=== PATIENT | female | born 1950 | race Hispanic/Latino ===

== ENCOUNTER 2017-08-21 05:51 | Observation (INO) | payer BC, MEDICARE ==
[2017-08-21] MEDS ORDERED: Esmolol 2,500 MG/250 ML 250 ML ONE (06:13)
[2017-08-21] MEDS ORDERED: Diltiazem 125 MG in Sodium Chloride 0.9% 100 ML IVPB SCH (06:30)
[2017-08-21] MEDS ORDERED: Ondansetron HCl/PF 4 MG/2 ML Vial ONE (06:32)
[2017-08-21 07:36] LABS: #Basophils 0.1 thou/uL (0.0-0.2); #Eosinphils 0.1 thou/uL (0.0-0.7); #Lymphocytes 1.1 thou/uL (1.20-3.40); #Monocytes 0.4 thou/uL (0.11-0.59); #Neutrophils 5.8 thou/uL (1.40-6.50); %Basophils 0.8 % (0.0-1.0); %Eosinophils 1.4 % (0.0-10.0); %Lymphocytes 14.4 % (21.0-51.0); %Monocytes 5.8 % (0.0-10.0); %Neutrophils 77.5 % (42.0-75.0); Hemoglobin 14.3 g/dL (12.0-16.0); Mean Corpuscular HGB CONC 32.9 g/dL (32.0-36.0); Mean Corpuscular Hemoglobin 29.5 pg (27.0-31.0); Mean Corpuscular Volume 89.9 fL (78.0-98.0); Platelet Count 237 thou/uL (130-400); RBC Distribution Width 11.4 % (11.5-14.5); Red Blood Cell (RBC) Count 4.84 mill/uL (4.20-5.40); White Blood Cell (WBC) Count 7.5 thou/uL (4.8-10.8)
[2017-08-21 07:48] LABS: ALT (SGPT) 14 U/L (8-55); AST (SGOT) 19 U/L (5-34); Alkaline Phosphatase 72 U/L (40-150); Anion Gap 14 mmol/L (10-20); BUN (Urea Nitrogen) 15 mg/dL (9.8-20.1); Bilirubin, Total 0.3 mg/dL (0.2-1.2); CK (CPK) 135 U/L (29-168); Calc. Creatinine Clearance 0 mL/min (70-130); Calcium 8.7 mg/dL (7.8-10.44); Carbon Dioxide 21 mmol/L (23-31); Chloride 108 mmol/L (98-107); Estimated GFR-MDRD 71; Globulin 2.8 g/dL (2.4-3.5); Glucose 115 mg/dL (80-115); Magnesium 2.4 mg/dL (1.6-2.6); Potassium 3.8 mmol/L (3.5-5.1); Protein, Total 6.8 g/dL (6.0-8.3); Sodium 139 mmol/L (136-145)
[2017-08-21] MEDS ORDERED: Meclizine HCl 25 MG TAB ONE (07:48)
[2017-08-21 07:52] LABS: CKMB 0.7 ng/mL (0-6.6); Troponin I Less than 0.010 ng/mL (< 0.028)
[2017-08-21] MEDS ORDERED: Promethazine HCl 25 MG/ML VIAL ONE (08:23)
--- NOTE | 2017-08-21 08:24 | RAD ---
UPRIGHT PORTABLE CHEST 1 VIEW: Date: 08/21/17 HISTORY: 66-year-old female with chest pain, dizziness, and nausea. FINDINGS: Heart size is normal. The lungs are clear. Monitor leads overlie the chest. IMPRESSION: Atherosclerosis of the aorta. No acute intrathoracic disease. POS: [facility]
[2017-08-21 09:35] LABS: Bilirubin Negative (Negative); Blood, Urine Negative (Negative); Clarity CLEAR (Clear); Glucose, Urine (Dipstick) Negative (Negative); Leukocyte Negative (Negative); Nitrite Negative (Negative); Protein, Urine (Dipstick) Negative (Neg-Trace); Urobilinogen 0.2 mg/dL (0.2-1.0)
--- NOTE | 2017-08-21 10:21 | CT ---
CT BRAIN WITHOUT CONTRAST: INDICATIONS: A 66-year-old female with a history of atrial fibrillation with nausea, vomiting, and vertigo like sy mptoms. The patient is also having shortness of breath. COMPARISON: None. FINDINGS: No acute infarct, hemorrhage, or hydrocephalus is present. The septum pellucidum and third ventricle are midline. There is some mild mucosal thickening within a few ethmoid air cells. The mastoid air cells are clear. The skull is intact. The extracranial soft tissues are normal appearing. IMPRESSION: 1. No acute intracranial abnormality. 2. Mild paranasal sinus disease. POS: [facility]
[2017-08-21 10:22] VITALS: BMI 31.2
[2017-08-21] MEDS ORDERED: Ondansetron HCl/PF 4 MG/2 ML Vial IVP PRN (10:39)
[2017-08-21] MEDS ORDERED: Ondansetron ODT 4 MG TAB PO PRN (10:39)
[2017-08-21] MEDS ORDERED: Acetaminophen 325 MG TAB PO PRN ×2 (10:40→13:09)
[2017-08-21] MEDS ORDERED: Aspirin 325 MG TAB PO SCH (10:45)
[2017-08-21 11:10] LABS: Troponin I Less than 0.010 ng/mL (< 0.028)
[2017-08-21] MEDS ORDERED: Guaifenesin DM 100-10/5 ML UDCUP PO PRN (13:09)
[2017-08-21] MEDS ORDERED: Senokot 8.6 MG TAB PO PRN (13:09)
[2017-08-21] MEDS ORDERED: Meclizine HCl 25 MG TAB PO PRN (13:10)
[2017-08-21] MEDS ORDERED: Succinylcholine Chloride 20 MG/ML 10 ml SYRINGE FS ONE (13:20)
[2017-08-21] MEDS ORDERED: Meclizine HCl 25 MG TAB PO SCH (14:00)
[2017-08-21 14:17] LABS: Troponin I Less than 0.010 ng/mL (< 0.028)
[2017-08-21] MEDS: Sodium Chloride 0.9% 1,000 ML IV SCH (14:46)
--- NOTE | 2017-08-21 14:58 | MRI ---
BRAIN MRI NONCONTRAST: Date: 08/21/[address] from earlier same date. CLINICAL HISTORY: TIA. FINDINGS: There is no evidence of ventriculomegaly. Mass effect, midline shift, or acute territorial infarction . No hemorrhagic intracranial susceptibility or significant signal abnormality of the brain parenchym a. A few nonspecific foci of increased FLAIR and T2 signal of the cerebral white matter may relate to minimal areas of gliosis. The skull base flow-voids are patent. [place] intraocular lenses are absent . IMPRESSION: No acute territorial infarction or mass effect. POS: [facility]
--- NOTE | 2017-08-21 19:29 | HP ---
REASON FOR ADMISSION: Atrial fibrillation, severe dizziness. HISTORY OF PRESENT ILLNESS: The patient gives history of waking up with dizziness. She tried to go use her restroom and turned around, which made her dizziness worse. From then on, she has been lying down. Each time she tries to get up, she has been feeling very dizzy. She also developed nauseating feeling and vomited multiple times. On arrival in the ER, the patient was found to be in atrial fibrillation with RVR. She was placed on esmolol drip and titrated up to 100 mcg with which she converted to sinus rhythm. She also received Zofran x2 which did not really help. She was given meclizine and Phenergan and her vomiting has resolved at present. The patient says she has had nearly 4 episodes of atrial fibrillation in the last 17 years with prior ablations as well. She follows up with Dr. Andrews for Cardiology. Has no complaints of any weakness in any of the extremities. The patient is right handed. Has no trouble swallowing. No history of trauma. PAST MEDICAL/SURGICAL HISTORY: Thyroid cancer with half of her thyroid removed , paroxysmal atrial fibrillation nearly 4 episodes in the last 17 years with prior ablation per patient, appendectomy, hysterectomy, and cholecystectomy. History of Helicobacter pylori infection and the patient is scared to take aspirin because of possible peptic ulcer disease. She also mentions that she has gained nearly 20 pounds in the last 1 year. CURRENT MEDICATION: Synthroid 100 mcg p.o. daily. ALLERGIES: No known drug allergies. PERSONAL HISTORY: Does not abuse alcohol or drugs. No history of smoking. FAMILY HISTORY: Mother of ovarian cancer at the age of 80 years. Father of kidney cancer at the age of 83 years. She lives with her . REVIEW OF SYSTEMS: The following complete review of systems was negative, unless otherwise mentioned in the HPI or below: Constitutional: Weight loss or gain, ability to conduct usual activities. Skin: Rash, itching. Eyes: Double vision, pain. ENT/Mouth: Nose bleeding, neck stiffness, pain, tenderness. Cardiovascular: Palpitations, dyspnea on exertion, orthopnea. Respiratory: Shortness of breath, wheezing, cough, hemoptysis, fever or night sweats. Gastrointestinal: Poor appetite, abdominal pain, heartburn, nausea, vomiting, constipation, or diarrhea. Genitourinary: Urgency, frequency, dysuria, nocturia. Musculoskeletal: Pain, swelling. Neurologic/Psychiatric: Anxiety, depression. Allergy/Immunologic: Skin rash, bleeding tendency. PHYSICAL EXAMINATION: GENERAL: The patient is a 66-year-old female who is currently not in any acute distress. VITAL SIGNS: Blood pressure 145/90; pulse 66 per minute, on arrival was 144; respiratory rate 18 per minute; temperature 97.5 degrees Fahrenheit; saturating 96% on room air. NECK: Supple, no elevated JVD. HEENT: Eyes: Extraocular muscles intact. Pupils reacting to light. Oral cavity: Mucous membranes are dry. No exudates or congestion. CARDIOVASCULAR: S1, S2 heard. Regular rhythm. RESPIRATORY: Air entry 2+ bilateral. No rales or rhonchi. ABDOMEN: Soft, bowel sounds heard. No tenderness, rigidity or guarding. EXTREMITIES: No peripheral edema or calf tenderness. VASCULAR SYSTEM: Peripheral pulses 2+ bilateral, no ischemic ulcerations or gangrene. CENTRAL NERVOUS SYSTEM: No gross focal deficits noted. The patient is alert, awake, and oriented well. PSYCHIATRIC: The patient's mood is euthymic. No hallucinations or delusions. LABORATORY AND X-RAY FINDINGS: EKG on arrival at 6:00 a.m. showed atrial fibrillation with RVR at 144 beats per minute after receiving esmolol with titrating up to 100 mcg, the patient converted to sinus rhythm at 7:05 a.m. H& H 14 and 43, platelet count 237. White count of 7.5, MCV 89 with a platelet count of 237. Neutrophils are 77%. Serum bicarbonate 21, BUN 15, creatinine 0.8, glucose 115. Troponin x2 negative. Liver enzymes are within normal limits. Magnesium is 2.4, albumin is 4.0. UA is clear of any infection. Chest x-ray done shows no acute intrathoracic disease. CT brain done showed no acute intracranial abnormality. There is mild paranasal sinus disease noted. CLINICAL IMPRESSION AND PLAN: The patient will be under observation on telemetry for paroxysmal atrial fibrillation, currently in sinus rhythm. We will place her on Lopressor 25 mg twice daily. The patient will also be on a full dose of aspirin. We will obtain an echo with 2D Doppler for LV function and to rule out thrombus. The patient appears to be in moderate dehydration and will place her on 100 mL per hour of normal saline for a total of 2 liters. We will continue her Synthroid and obtain free T3, free T4 and TSH in the morning. We will also place her on a small dose of Lipitor for now and lipid profile will be obtained in the morning. The patient had severe dizziness and we will obtain an MRI to rule out posterior circulation cerebrovascular accident. We will consult her returner, Dr. Conn, while she is here. The patient has had nearly 4 prior episodes of atrial fibrillation, the last one being in 2017. CODE STATUS: FULL. Power of deputy attorney general is her . RAMA
[2017-08-21] MEDS: Metoprolol Tartrate 25 MG TAB PO SCH ×2 (20:49→20:57)
[2017-08-21] MEDS: Famotidine 20 MG TAB PO SCH (20:49)
[2017-08-21] MEDS ORDERED: Atorvastatin Calcium 10 MG TAB PO SCH (21:00)
[2017-08-22] MEDS: Sodium Chloride 0.9% 1,000 ML IV SCH (01:32)
--- NOTE | 2017-08-22 03:28 | CON ---
DATE OF CONSULTATION: 08/21/2017 HISTORY OF PRESENT ILLNESS: Rose Dumas is a 66-year-old Latin-Serbian female, who has had 4 episodes of atrial fibrillation over the last 20 years or so. In 2007, she did undergo cardiac catheterization by Dr. Andrews and was found to have normal coronary arteries. She was again admitted here in 05/2016 and seen by was Dr. Conn at that time. She complained of exertional chest pressure at times. She also had gastroenteritis and apparently some gastrointestinal bleeding. She went to the emergency room and was found to be in atrial fibrillation with a rapid rate and also ST-segment depression in V4, 5 and 6 and lead II and III. She was being sedated for electrical cardioversion and she spontaneously converted to sinus rhythm. She did have a slight rise in her troponin. With EKG changes and abnormal troponin, she underwent cardiac catheterization by Dr. Conn and was found to have an ejection fraction of 60% and normal coronary arteries. She was again seen by Dr. Conn in 06/2016 and discussion was held regarding possible anticoagulation. With apparent history of gastrointestinal bleeding, it was felt that the benefit would be questionable with the anticoagulation since she has had very few episodes of atrial fibrillation. She was given diltiazem to take p.r.n. as well as Xarelto if she would have an episode. She was not placed on any medications long-term, because of her bradycardia. Over the last few days, she felt as if she may have had an irregular heartbeat; however, when she would use her pulse ox to check her heart rate, it would be in the 70s. She then awoke this morning and turned her head on her pillow, became intensely vertiginous with feeling the room was spinning and very nauseated. She called paramedics, and when they sat her up, she vomited. She states that her vertigo has dramatically improved today. When she arrived here , she was found to be in atrial fibrillation. She was placed on esmolol drip and eventually converted to sinus rhythm. She was given meclizine and Phenergan for vomiting and that has improved. PAST MEDICAL HISTORY: Four episodes of atrial fibrillation over the last 20 years. She had a partial thyroidectomy for thyroid cancer. OPERATIONS: Appendectomy, hysterectomy, cholecystectomy, thyroidectomy. MEDICATIONS: Levothyroxine 100 mcg daily. ALLERGIES: None. SOCIAL HISTORY: She does not smoke or drink. FAMILY HISTORY: Negative for coronary artery disease. REVIEW OF SYSTEMS: Twelve-point review of systems otherwise unremarkable. PHYSICAL EXAMINATION: VITAL SIGNS: Blood pressure 126/60, pulse of 60, sinus rhythm on the monitor. HEENT: PERRL. NECK: Supple. CHEST: Clear. CARDIOVASCULAR: S1 and S2 are normal, without any S3, S4, or murmurs. Carotid upstrokes normal, without bruits. ABDOMEN: Normal bowel sounds, without tenderness or organomegaly. EXTREMITIES: Revealed no clubbing, cyanosis, or edema. NEUROLOGIC: Grossly intact. SKIN: Warm and dry. LABORATORY DATA AND IMAGING: EKG on admission revealed atrial fibrillation with fast ventricular response of 144 per minute. There was ST-segment depression in V4 through V6. EKG after converting revealed sinus bradycardia with rate of [address] minute [address] the [address]-segments had returned to baseline. CBC is unremarkable. Cardiac enzymes were unremarkable. Sodium 139, potassium 3.8 , chloride 108, carbon dioxide 21, BUN 15, creatinine 0.80. IMPRESSION: 1. Acute labyrinthitis. She has undergone MRI of the brain, which apparently was normal. 2. Paroxysmal atrial fibrillation with 4 episodes over the past 18-20 years. Due to previous history of gastrointestinal bleeding, it was felt best not to have her on chronic anticoagulation given the infrequent nature of her atrial fibrillation. There was question of irregular heartbeat over the past several days prior to this episode today; however, when she checked with pulse oximeter , her heart rate was in the 70s. She does have diltiazem as well as Xarelto to take if she has such an episode and she has been instructed to go to the emergency room when she takes these. 3. Hypothyroidism. 4. History of thyroid cancer. PLAN: Echocardiogram will be performed to reassess left ventricular function. Her acute labyrinthitis symptoms have dramatically improved with meclizine. She currently is on metoprolol 25 b.i.d. and her heart rate will need to be watched very closely with this since she apparently in the past has had episodes of bradycardia. RAMA
[2017-08-22 05:12] LABS: #Eosinphils 0.1 thou/uL (0.0-0.7); #Lymphocytes 1.8 thou/uL (1.20-3.40); #Monocytes 0.5 thou/uL (0.11-0.59); #Neutrophils 3.2 thou/uL (1.40-6.50); %Basophils 0.5 % (0.0-1.0); %Lymphocytes 32.3 % (21.0-51.0); %Monocytes 8.7 % (0.0-10.0); %Neutrophils 56.5 % (42.0-75.0); Hemoglobin 12.9 g/dL (12.0-16.0); Mean Corpuscular HGB CONC 33.6 g/dL (32.0-36.0); Mean Corpuscular Hemoglobin 30.1 pg (27.0-31.0); Mean Corpuscular Volume 89.7 fL (78.0-98.0); Mean Platelet Volume 8.2 fL (7.4-10.4); Platelet Count 231 thou/uL (130-400); RBC Distribution Width 11.5 % (11.5-14.5); Red Blood Cell (RBC) Count 4.29 mill/uL (4.20-5.40); White Blood Cell (WBC) Count 5.6 thou/uL (4.8-10.8)
[2017-08-22 05:35] LABS: Anion Gap 11 mmol/L (10-20); BUN (Urea Nitrogen) 13 mg/dL (9.8-20.1); Calc. Creatinine Clearance 91 mL/min (70-130); Calcium 8.5 mg/dL (7.8-10.44); Carbon Dioxide 23 mmol/L (23-31); Cardiac Risk 3.6 (Less than 4.5); Chloride 110 mmol/L (98-107); Cholesterol 200 mg/dl (< 200 Desired); Estimated GFR-MDRD 75; Glucose 98 mg/dL (80-115); HDL Cholesterol 55 mg/dL (>60 Neg Risk); LDL Cholesterol, Calculated 123 mg/dL; Potassium 3.7 mmol/L (3.5-5.1); Sodium 140 mmol/L (136-145); Triglycerides 111 mg/dL (Less than 150)
[2017-08-22] MEDS ORDERED: Levothyroxine Sodium 100 MCG TAB PO SCH (06:00)
[2017-08-22 06:16] LABS: Free T4 (Free Thyroxine) 0.92 ng/dL (0.70-1.48); Thyroid Stimulating Hormone 0.2924 uIU/mL (0.35-4.94)
[2017-08-22] MEDS: Famotidine 20 MG TAB PO SCH (08:48)
[2017-08-22] MEDS: Metoprolol Tartrate 25 MG TAB PO SCH (08:48)
[2017-08-22] MEDS ORDERED: Aspirin 325 mg Enteric Coated Tablet PO SCH (09:00)
[2017-08-22] MEDS ORDERED: Enoxaparin Sodium 40 MG/0.4 ML SYRINGE SC SCH (09:00)
--- NOTE | 2017-08-22 12:03 | PDOC.PN ---
- Subjective Encounter Start Date: 08/22/17 Encounter Start Time: 09:30 Subjective: is getting echo done now -: no sob or chest pain or palp - Objective Resuscitation Status: Resuscitation Status FULL:Full Resuscitation MAR Reviewed: Yes Vital Signs & Weight: Vital Signs (12 hours) Temp Pulse Resp BP Pulse Ox 08/22/17 11:26 97.5 F L 55 L 16 124/61 94 L 08/22/17 07:40 98.6 F 59 L 18 08/22/17 07:29 98.6 F 59 L 18 115/57 L 90 L 08/22/17 03:27 97.7 F 62 20 126/60 92 L Weight Weight 182 lb I&O: 08/21/17 08/22/17 08/23/17 06:59 06:59 06:59 Intake Total 1000 Balance 1000 Result Diagrams: 08/22/17 04:27 08/22/17 04:27 Phys Exam - Physical Examination HEENT: PERRLA, moist MMs Neck: no JVD, supple Respiratory: no wheezing, no rales Cardiovascular: RRR, no significant murmur Gastrointestinal: soft, non-tender, positive bowel sounds Musculoskeletal: no edema, pulses present Neurological: non-focal, moves all 4 limbs Psychiatric: normal affect, A&O x 3 Dx/Plan (1) Afib Code(s): I48.91 - UNSPECIFIED ATRIAL FIBRILLATION Status: Acute Qualifiers: Atrial fibrillation type: paroxysmal Qualified Code(s): I48.0 - Paroxysmal atrial fibrillation Comment: in sinus rhythm now (2) Dizziness Code(s): R42 - DIZZINESS AND GIDDINESS Status: Resolved (3) Hypothyroidism Code(s): E03.9 - HYPOTHYROIDISM, UNSPECIFIED Status: Chronic Qualifiers: Hypothyroidism type: acquired Qualified Code(s): E03.9 - Hypothyroidism, unspecified (4) Dyslipidemia Code(s): E78.5 - HYPERLIPIDEMIA, UNSPECIFIED Status: Chronic - Plan is on full dose asp, lipitor and synthroid -: await echo results, meclizine prn -: dc plan per cardio advice -: free T3, free T4 are normal, MRI no ac cva, LDL is 123 -: off lopressor due to prior incidence of severe bradycardia * . Review of Systems - Medications/Allergies Allergies/Adverse Reactions: Allergies Allergy/AdvReac Type Severity Reaction Status Date / Time No Known Drug Allergies Allergy Verified 08/21/17 06:27 Medications: Current Medications Acetaminophen (Tylenol) 650 mg PO Q4H PRN PRN Reason: Headache/Fever or Pain Last Admin: 08/21/17 20:49 Dose: 650 mg Aspirin (Ecotrin) 325 mg PO DAILY [facility] Last Admin: 08/22/17 08:48 Dose: 325 mg Atorvastatin Calcium (Lipitor) 10 mg PO HS [facility] Last Admin: 08/21/17 20:49 Dose: 10 mg Enoxaparin Sodium (Lovenox) 40 mg SC 0900 [facility] Last Admin: 08/22/17 08:48 Dose: 40 mg Famotidine (Pepcid) 20 mg PO BID [facility] Last Admin: 08/22/17 08:48 Dose: 20 mg Guaifenesin/Dextromethorphan (Robitussin Dm) 15 ml PO Q4H PRN PRN Reason: Cough Levothyroxine Sodium (Synthroid) 100 mcg PO 0600 [facility] Last Admin: 08/22/17 05:28 Dose: 100 mcg Meclizine HCl (Antivert) 25 mg PO Q8H PRN PRN Reason: Dizziness Senna (Senokot) 2 tab PO HSPRN PRN PRN Reason: Constipation
[2017-08-22 16:38] VITALS: BP 136/67; TEMP 97.9
--- NOTE | 2017-08-23 13:58 | DIS ---
DATE OF DISCHARGE: 08/22/2017 DISCHARGE DISPOSITION: To home. PRIMARY DISCHARGE DIAGNOSES: 1. Paroxysmal atrial fibrillation, in sinus rhythm. 2. Dizziness, resolved. SECONDARY DISCHARGE DIAGNOSES: Hypothyroidism, dyslipidemia. PROCEDURES DONE DURING HOSPITALIZATION: CT brain without contrast done showed no acute intracranial abnormality. Chest x-ray done showed no acute intrathoracic abnormality. MRI brain showed no acute territorial infarct or mass effect. Echo with 2D Doppler showed an EF of 50-55%, moderate mitral reg urgitation, H&H 13 and 38, platelet count 231 with 56% neutrophils. BUN 13, creatinine 0.7. Troponi n x3 negative. Total cholesterol 200, triglycerides 111, LDL 123, HDL 55. Free T3 2.0, free T4 0.9. TSH was 0.29. INPATIENT CONSULTS: Dr. Bhakta for Cardiology. DISCHARGE MEDICATIONS: Aspirin 325 mg p.o. daily, Lipitor 10 mg p.o. at bedtime, Synthroid 100 mcg p .o. daily, meclizine 25 mg p.o. q.8 hours p.r.n. for dizziness. ALLERGIES: No known drug allergies. DISCHARGE PLAN: Patient to follow up with Cardiology as advised and primary care physician in 1 week . BRIEF COURSE DURING HOSPITALIZATION: The patient initially came to ER with complaints of waking up w ith dizziness which was unrelenting with nausea and vomiting. On arrival, the patient was found to b e in atrial fibrillation. She was placed on esmolol drip and titrated up to 100 mcg, which converted her atrial fibrillation to sinus rhythm in the ER itself. In view of her dizziness the patient was placed on the stroke unit to rule out posterior circulation cerebrovascular accident. She had initia l CT brain and MRI brain, both of which have not shown any acute infarct. Her nausea and vomiting co mpletely resolved with a dose of meclizine and Phenergan. Free T3, free T4 are within normal limits with history of hypothyroidism. She remained in sinus rhythm all through her stay on telemetry. She was evaluated by Dr. Bhakta, who was covering for Dr. Conn. The patient has known history of pa roxysmal atrial fibrillation and has had nearly 5 episodes in the last 17 years or so. She is hemody namically stable, eating and ambulating prior to discharge. She is cleared by Dr. Bhakta for disch arge. The patient was not placed on any AV kei blockers as she tends to become bradycardic and ghassan ecially Lopressor. She is hemodynamically stable prior to discharge. Please see a [id number] docu mentation on [facility] for the day of discharge.
== END 2017-08-22 17:23 | disposition home or self-care (01) ==
LOC: ERS 05:51 → MERGE 09:02 → 2SE 09:02
PROVIDERS: ADMIT Internal Medicine; ATTEND Internal Medicine
DX: I48.0 Paroxysmal atrial fibrillation (principal); E03.9 Hypothyroidism, unspecified; E78.5 Hyperlipidemia, unspecified; H83.09 Labyrinthitis, unspecified ear; Z79.82 Long term (current) use of aspirin; Z79.899 Other long term (current) drug therapy
CPT/HCPCS: 36415; 70450; 70551; 71045; 80048; 80053; 80061; 81003; 82550; 82553; 83735; 84439; 84443; 84481; 84484; 85025; 93005; 93306; 94760; 96365; 96366; 96372; 96374; 96375; G0378; J1650; J2405; J2550; J7050